=== PATIENT | male | born 1940 | race Caucasian/White ===

== ENCOUNTER 2019-05-29 15:05 | Inpatient (IN) | payer OTHER, MEDICAID ==
[~2019-05-29] VITALS: Ht 170.2 cm; Wt 84.8 kg
[~2019-05-29 15:05] MED LIST: DEPAKOTE ER250 M1 PO; FINASTERIDE5 M1 PO; FLO4 PO; IBUPROFEN400 MG PO; NAMENDA10 M2 PO; RANITIDINE150 M1 PO; RISPERDAL2 M1 PO; TERAZOSIN HCL2 MG PO; ZOC20 PO
[2019-05-29 15:17] VITALS: Ht 170.2 cm; Wt 84.8 kg
[2019-05-29 16:10] LABS: BASOPHIL % 0.4 % (0-2); PLATELET COUNT 179 x10^3mcL (130-400); RED CELL DISTRIBUTION WIDTH 13.3 % (11.5-14.5)
[2019-05-29 16:18] LABS: CALCIUM 8.3 mg/dL (8.5-10.1); CARBON DIOXIDE 25.3 mmol/L (21-32); CHLORIDE SERUM 105 mmol/L (98-107); CREATININE SERUM 0.7 mg/dL (0.7-1.3); GLUCOSE SERUM 112 mg/dL (74-106); POTASSIUM SERUM 4.1 mmol/L (3.5-5.1); SODIUM SERUM 138 mmol/L (136-145)
[2019-05-29 16:23] LABS: ALKALINE PHOSPHATASE 80 U/L (46-116); ALT/SGPT 31 U/L (16-63); AST/SGOT 20 U/L (15-37); BILIRUBIN TOTAL 0.5 mg/dL (0.20-1.00); TOTAL PROTEIN, SERUM 8.1 g/dL (6.4-8.2)
[2019-05-29 16:24] LABS: ALBUMIN 3.2 g/dL (3.4-5.0); CHOLESTEROL 121 mg/dL (<200)
[2019-05-29] MEDS ORDERED: LACTULOSE10 GM/153 PO (18:32)
[2019-05-29] MEDS ORDERED: OMEPRAZOLE MAGN20 M1 PO (18:33)
[2019-05-29] MEDS ORDERED: RAZADYNE8 MG PO (18:34)
[2019-05-29] MEDS ORDERED: SODIUM CHLORIDE1 G2 PO (18:35)
[2019-05-29 20:29] LABS: FREE T4 1.37 ng/dL (0.76-1.46); FREE THYROXINE INDEX 3.1 ug/dL (1.4-4.5); T3 TOTAL 1.63 ng/mL; T4(THYROXINE) 8.9 ug/dL (4.7-13.3)
[2019-05-29 20:39] VITALS: BP 102/64
[2019-05-29 23:45] LABS: UA SPECIFIC GRAVITY 1.025 (1.005-1.035); microscopic required? YES; urine erythrocyte TRACE (NEGATIVE)
[2019-05-30 00:05] LABS: AMPHETAMINE QUAL UR NONE DETECTED (See below)
[2019-05-30 05:29] VITALS: BP 95/52
[2019-05-30 06:27] LABS: CALCIUM 7.6 mg/dL (8.5-10.1); CARBON DIOXIDE 23.4 mmol/L (21-32); CHLORIDE SERUM 107 mmol/L (98-107); CREATININE SERUM 0.7 mg/dL (0.7-1.3); GLUCOSE SERUM 90 mg/dL (74-106); POTASSIUM SERUM 3.4 mmol/L (3.5-5.1); SODIUM SERUM 139 mmol/L (136-145)
[2019-05-30 06:34] LABS: BASOPHIL % 0.2 % (0-2); PLATELET COUNT 163 x10^3mcL (130-400); RED CELL DISTRIBUTION WIDTH 13.2 % (11.5-14.5)
[2019-05-30 08:45] VITALS: BP 103/46
[2019-05-30 12:07] VITALS: BP 140/116
[2019-05-30 17:03] VITALS: BP 132/70
[2019-05-30 19:43] VITALS: BP 110/53
[2019-05-31 05:43] VITALS: BP 110/53
[2019-05-31 06:43] LABS: BASOPHIL % 0.3 % (0-2); PLATELET COUNT 180 x10^3mcL (130-400); RED CELL DISTRIBUTION WIDTH 13.2 % (11.5-14.5)
[2019-05-31 07:14] LABS: CALCIUM 7.9 mg/dL (8.5-10.1); CARBON DIOXIDE 25.6 mmol/L (21-32); CHLORIDE SERUM 106 mmol/L (98-107); CREATININE SERUM 0.6 mg/dL (0.7-1.3); GLUCOSE SERUM 99 mg/dL (74-106); MAGNESIUM 1.7 mg/dL (1.8-2.4); PHOSPHOROUS 2.5 mg/dL (2.5-4.9); POTASSIUM SERUM 3.2 mmol/L (3.5-5.1); SODIUM SERUM 141 mmol/L (136-145)
[2019-05-31 08:26] VITALS: BP 100/61
[2019-05-31 13:34] VITALS: BP 107/59
[2019-05-31 16:02] VITALS: BP 128/75
== END 2019-05-31 20:30 | DRG 391 ==
LOC: ED 15:05 → DU 19:15 → MU 05-31 10:40
PROVIDERS: ADMIT Family Medicine
DX: K29.70 Gastritis, unspecified, without bleeding (principal); G93.41 Metabolic encephalopathy; F02.81 Dementia in other diseases classified elsewhere, unspecified severity, with behavioral disturbance; E87.6 Hypokalemia; E86.0 Dehydration; E78.5 Hyperlipidemia, unspecified; K21.9 Gastro-esophageal reflux disease without esophagitis; G30.9 Alzheimer's disease, unspecified; N40.0 Benign prostatic hyperplasia without lower urinary tract symptoms; I50.9 Heart failure, unspecified; R00.1 Bradycardia, unspecified; E11.9 Type 2 diabetes mellitus without complications; F29 Unspecified psychosis not due to a substance or known physiological condition
CPT/HCPCS: 36600; 84439; 87804; 92526-GN; 92610-GN; C9113; G0378; G0480; J2060; J2405; J7030; Q0092